=== PATIENT | female | born 1990 | race African-American/Black ===

== ENCOUNTER 2016-05-04 23:22 | Emergency (ER) | payer SELFPAY ==
--- NOTE | 2016-05-05 06:36 | RAD ---
RIGHT FOOT 3 VIEWS: Date: 05/04/16 HISTORY: Right great toe injury. COMPARISON: None. FINDINGS: Lisfranc alignment is maintained. Joint space preserved. No fracture. Mid foot soft tissue swelling. IMPRESSION: No fracture. POS: [facility]
== END 2016-05-05 00:04 | disposition home or self-care (01) ==
LOC: NAV ERS 23:22
DX: S93.601A Unspecified sprain of right foot, initial encounter (principal); F17.210 Nicotine dependence, cigarettes, uncomplicated; X58.XXXA Exposure to other specified factors, initial encounter

== ENCOUNTER 2018-02-25 18:27 | Emergency (ER) | payer SELFPAY ==
[2018-02-25] MEDS ORDERED: diphenhydrAMINE 25 MG CAP ONE (18:43)
[2018-02-25] MEDS ORDERED: Famotidine 20 MG TAB ONE (19:01)
[2018-02-25] MEDS ORDERED: predniSONE 20 MG TAB ONE (19:01)
== END 2018-02-25 19:37 | disposition home or self-care (01) ==
LOC: NAV ERS 18:27
DX: L50.9 Urticaria, unspecified (principal); F17.210 Nicotine dependence, cigarettes, uncomplicated
CPT/HCPCS: 99282; J7506

== ENCOUNTER 2018-03-24 19:43 | Emergency (ER) | payer MEDICAID, SELFPAY ==
[2018-03-24] MEDS ORDERED: Lidocaine 1% (PF) 30 ML VIAL ONE (19:56)
== END 2018-03-24 20:35 | disposition home or self-care (01) ==
LOC: NAV ERS 19:43
DX: L05.01 Pilonidal cyst with abscess (principal); L02.31 Cutaneous abscess of buttock; Z71.6 Tobacco abuse counseling; F17.210 Nicotine dependence, cigarettes, uncomplicated
CPT/HCPCS: 10060; 10081; 87070; 87077; 87186; 87205; 99406; J2001

== ENCOUNTER 2020-12-24 19:02 | Emergency (ER) | payer SELFPAY ==
[2020-12-24 19:39] LABS: #Basophils 0.1 thou/uL (0.0-0.2); #Eosinphils 0.1 thou/uL (0.0-0.7); #Lymphocytes 3.2 thou/uL (1.20-3.40); #Monocytes 0.5 thou/uL (0.11-0.59); %Basophils 0.7 % (0.0-1.0); %Eosinophils 1.3 % (0.0-10.0); %Lymphocytes 32.4 % (21.0-51.0); %Monocytes 4.6 % (0.0-10.0); Hemoglobin 12.6 g/dL (12.0-16.0); Mean Corpuscular HGB CONC 32.4 g/dL (32.0-36.0); Mean Corpuscular Hemoglobin 31.5 pg (27.0-31.0); Mean Corpuscular Volume 97.2 fL (78.0-98.0); Mean Platelet Volume 5.9 fL (7.4-10.4); Platelet Count 371 thou/uL (130-400); RBC Distribution Width 12.9 % (11.5-14.5); Red Blood Cell (RBC) Count 3.99 mill/uL (4.20-5.40); White Blood Cell (WBC) Count 9.8 thou/uL (4.8-10.8)
[2020-12-24] MEDS ORDERED: Lidocaine Viscous Sol 2% 15 ml UD Cup ONE (19:39)
[2020-12-24] MEDS ORDERED: Mag-Al Plus 1200 MG/1200 MG/120 MG/30 ML UDCUP ONE (19:39)
[2020-12-24 20:04] LABS: BUN (Urea Nitrogen) 7 mg/dL (7.0-18.7); Calc. Creatinine Clearance 0 mL/min (70-130); Carbon Dioxide 22 mmol/L (22-29); Chloride 105 mmol/L (98-107); Potassium 4.1 mmol/L (3.5-5.1); Sodium 138 mmol/L (136-145)
[2020-12-24 20:05] LABS: ALT (SGPT) 17 U/L (8-55); AST (SGOT) 33 U/L (5-34); Alkaline Phosphatase 59 U/L (40-110); Bilirubin, Total 0.3 mg/dL (0.2-1.2); Calcium 8.9 mg/dL (7.8-10.44); Globulin 4.3 g/dL (2.4-3.5); Glucose 94 mg/dL (70-105); Lipase 15 U/L (8-78); Protein, Total 8.3 g/dL (6.0-8.3)
[2020-12-24 20:10] LABS: Anion Gap 11 mmol/L (10-20)
== END 2020-12-24 20:47 | disposition home or self-care (01) ==
LOC: NAV ERS 19:02
DX: R10.13 Epigastric pain (principal); R11.0 Nausea; F17.210 Nicotine dependence, cigarettes, uncomplicated
CPT/HCPCS: 80053; 83690; 84484; 85025; 93005

== ENCOUNTER 2021-01-27 08:30 | Emergency (ER) | payer SELFPAY ==
[2021-01-27] MEDS ORDERED: Ondansetron PF 4 MG/2 ML Vial ONE (08:55)
[2021-01-27] MEDS ORDERED: Sodium Chloride 0.9% 1,000 ML ONE (08:55)
[2021-01-27] MEDS ORDERED: Ketorolac Tromethamine 30 MG/ML VIAL ONE (08:55)
[2021-01-27 09:13] LABS: Hemoglobin 11.8 g/dL (12.0-16.0); Mean Corpuscular HGB CONC 32.7 g/dL (32.0-36.0); Mean Corpuscular Hemoglobin 31.6 pg (27.0-31.0); Mean Corpuscular Volume 96.7 fL (78.0-98.0); Mean Platelet Volume 5.8 fL (7.4-10.4); Platelet Count 381 thou/uL (130-400); RBC Distribution Width 12.6 % (11.5-14.5); Red Blood Cell (RBC) Count 3.74 mill/uL (4.20-5.40); White Blood Cell (WBC) Count 11.1 thou/uL (4.8-10.8)
[2021-01-27 09:24] LABS: AST (SGOT) 18 U/L (5-34); Albumin 3.7 g/dL (3.5-5.0); Alkaline Phosphatase 57 U/L (40-110); Anion Gap 11 mmol/L (10-20); BUN (Urea Nitrogen) 7 mg/dL (7.0-18.7); Bilirubin, Total 0.2 mg/dL (0.2-1.2); Calc. Creatinine Clearance 0 mL/min (70-130); Calcium 8.8 mg/dL (7.8-10.44); Carbon Dioxide 25 mmol/L (22-29); Chloride 107 mmol/L (98-107); Globulin 3.3 g/dL (2.4-3.5); Glucose 97 mg/dL (70-105); Potassium 3.7 mmol/L (3.5-5.1); Sodium 139 mmol/L (136-145)
[2021-01-27 09:31] LABS: #Basophils 0.1 thou/uL (0.0-0.2); #Eosinphils 0.1 thou/uL (0.0-0.7); #Lymphocytes 2.4 thou/uL (1.20-3.40); #Monocytes 0.5 thou/uL (0.11-0.59); #Neutrophils 8.2 thou/uL (1.40-6.50); %Basophils 0.6 % (0.0-1.0); %Eosinophils 0.5 % (0.0-10.0); %Lymphocytes 21.5 % (21.0-51.0); %Monocytes 4.7 % (0.0-10.0); %Neutrophils 72.7 % (42.0-75.0)
[2021-01-27 09:43] LABS: ALT (SGPT) 11 U/L (8-55)
== END 2021-01-27 10:25 | disposition home or self-care (01) ==
LOC: NAV ERS 08:30
DX: I71.4 Abdominal aortic aneurysm, without rupture (principal); A08.4 Viral intestinal infection, unspecified; F17.210 Nicotine dependence, cigarettes, uncomplicated
CPT/HCPCS: 80053; 85025; 96372; 96374; 96375; J0500; J1885; J2405; J7050

== ENCOUNTER 2021-04-06 08:01 | Emergency (ER) | payer SELFPAY ==
[2021-04-06] MEDS ORDERED: Ketorolac Tromethamine 60 MG/2 ML VIAL ONE (08:30)
== END 2021-04-06 08:45 | disposition home or self-care (01) ==
LOC: NAV ERS 08:01
DX: S46.912A Strain of unspecified muscle, fascia and tendon at shoulder and upper arm level, left arm, initial encounter (principal); X50.1XXA Overexertion from prolonged static or awkward postures, initial encounter
CPT/HCPCS: 96372; 99283; J1885

== ENCOUNTER 2022-09-16 22:16 | Emergency (ER) | payer SELFPAY ==
[2022-09-16] MEDS ORDERED: Ketorolac Tromethamine 60 MG/2 ML VIAL ONE (22:45)
[2022-09-16] MEDS ORDERED: Orphenadrine Citrate 60 MG/2 ML VIAL ONE (22:45)
== END 2022-09-16 23:09 | disposition home or self-care (01) ==
LOC: NAV ERS 22:16
DX: M54.50 Low back pain, unspecified (principal); F17.210 Nicotine dependence, cigarettes, uncomplicated
CPT/HCPCS: 96372; 99283; J1885; J2360